=== PATIENT | male | born 1955 | race African-American/Black ===

== ENCOUNTER 2018-02-09 19:56 | Emergency (ER) | payer OTHER ==
[~2018-02-09] VITALS: Ht 182.9 cm; Wt 97.1 kg
[2018-02-09] MEDS ORDERED: METFORMIN HCL1000 M1 ORAL (20:06)
[2018-02-09] MEDS ORDERED: METOPROLOL TART50 M1 ORAL (20:09)
[2018-02-09] MEDS ORDERED: HYDROCHLOROTHIA25 MG ORAL (20:09)
[2018-02-09] MEDS ORDERED: BENAZEPRIL HCL10 MG ORAL (20:09)
[2018-02-09] MEDS ORDERED: GLIPIZIDE5 MG ORAL (20:09)
[2018-02-09] MEDS ORDERED: SIMVASTATIN40 MG ORAL (20:09)
[2018-02-09 20:35] VITALS: BP 138/79
[2018-02-09 20:57] LABS: BASOPHILS % (AUTO) 1.9 % (0.0-2.0); EOSINOPHILS % (AUTO) 2.3 % (0.0-3.0); HEMATOCRIT 38.5 % (42.0-52.0); HEMOGLOBIN 13.7 G/DL (14.2-18.0); LYMPHOCYTES % (AUTO) 26.8 % (20.0-45.0); MEAN CORPUSCULAR VOLUME 92 FL (80-99); MONOCYTES % (AUTO) 8.9 % (1.0-10.0); PLATELET COUNT 147 K/UL (150-450); RED BLOOD COUNT 4.19 M/UL (4.70-6.10); RED CELL DISTRIBUTION WIDTH 11.1 % (11.6-14.8); WHITE BLOOD COUNT 6.9 K/UL (4.8-10.8)
[2018-02-09 21:00] LABS: ANION GAP 4 mmol/L (5-15); BLOOD UREA NITROGEN 13 mg/dL (7-18); CALCIUM 9.2 MG/DL (8.5-10.1); CARBON DIOXIDE 31 MMOL/L (21-32); CHLORIDE 102 MMOL/L (98-107); CREATININE 1.2 MG/DL (0.55-1.30); POTASSIUM 4.1 MMOL/L (3.5-5.1); SODIUM 137 MMOL/L (136-145)
--- NOTE | 2018-02-09 21:03 | Emergency Room Report ---
History of Present Illness General Chief Complaint: Chest Pain Source: Patient Present Illness HPI 62-year-old male presents ED for evaluation. Complaining of chest pain. Started a few hours prior to arrival. Sudden onset. Described as pulling sensation on his left chest. Denies shortness of breath. Patient denies any chest pain at this time. Denies fevers or chills. Denies cough. Denies alcohol or drug use. Notes history of hypertension and diabetes and states he is compliant with his medications. No other aggravating relieving factors. Denies any other associated symptoms Allergies: Coded Allergies: No Known Allergies (Unverified , 02/09/18) Patient History Past Medical History: DM, HTN Past Surgical History: none Pertinent Family History: none Social History: Denies: smoking, alcohol use, drug use Immunizations: UTD Reviewed Nursing Documentation: PMH: Agreed; PSxH: Agreed Nursing Documentation-PMH Past Medical History: No History, Except For Hx Hypertension: Yes Hx Diabetes: Yes - dm2 Hx Neurological Problems: Yes - brain surgery 1994, migranes, "bad back" Review of Systems All Other Systems: negative except mentioned in HPI Physical Exam Vital Signs Date Time Temp Pulse Resp B/P (MAP) Pulse Ox O2 Delivery O2 Flow Rate FiO2 02/09/18 19:58 98.4 68 16 138/79 95 Room Air 98.4 Sp02 EP Interpretation: reviewed, normal General Appearance: no apparent distress, alert, GCS 15, non-toxic Head: normocephalic, atraumatic Eyes: bilateral eye normal inspection, bilateral eye PERRL ENT: hearing grossly normal, normal pharynx, no angioedema, normal voice Neck: full range of motion, supple/symm/no masses Respiratory: chest non-tender, lungs clear, normal breath sounds, speaking full sentences Cardiovascular #1: regular rate, rhythm, no edema Cardiovascular #2: 2+ carotid (R), 2+ carotid (L), 2+ radial (R), 2+ radial (L) , 2+ dorsalis pedis (R), 2+ dorsalis pedis (L) Gastrointestinal: normal bowel sounds, non tender, soft, non-distended, no guarding, no rebound Rectal: deferred Genitourinary: normal inspection, no CVA tenderness Musculoskeletal: back normal, gait/station normal, normal range of motion, non- tender Neurologic: alert, oriented x3, responsive, motor strength/tone normal, sensory intact, speech normal Psychiatric: judgement/insight normal, memory normal, mood/affect normal, no suicidal/homicidal ideation Reflexes: 3+ bicep (R), 3+ bicep (L), 3+ tricep (R), 3+ tricep (L), 3+ knee (R) , 3+ knee (L) Skin: normal color, no rash, warm/dry, well hydrated Lymphatic: no adenopathy Medical Decision Making Diagnostic Impression: Primary Impression: Chest pain Qualified Codes: R07.9 - Chest pain, unspecified ER Course Hospital Course 62-year-old M presents ED complaining of chest pain. no chest pain on arrival Differential diagnoses include: Rib fracture, NV/unstable angina, contusion, muscle strain Clinical course Patient placed on stretcher. After initial history and physical I ordered labs , EKG, chest x-ray. labs reviewed- all electrolytes normal, troponins negative, no leukocytosis, hemoglobin/hematocrit stable EKG - NSR, no acute ishcemic changes interpreted by me Chest x-ray-no cardiomegaly, no rib fracture, no pneumothorax, no acute process Given presentation of symptoms which started shortly after some epigastric discomfort and nausea, along with negative troponin and normal EKG with stable vitals I believe patient can be safely discharged to home. Per HEART score patient is at low risk of adverse event. I discussed findings with the patient. patient remained chest pain-free during ED course. Vital stable. Patient agrees to discharge pending close outpatient follow-up with PMD. I. I feel this is a highly complex case requiring extensive working including EKG/Rhythm strip, Xray/CT/US, Blood/urine lab work, repeat exams while in ED, and administration of strong opiates/narcotics for pain control, admission to hospital or close patient follow up. Diagnosis - chest pain Stable and discharged to home. Instructed to followup with PMD. Return to ED if symptoms recur or worsen Labs Test 02/09/18 20:25 02/09/18 21:00 White Blood Count 6.9 K/UL (4.8-10.8) Red Blood Count 4.19 M/UL (4.70-6.10) Hemoglobin 13.7 G/DL (14.2-18.0) Hematocrit 38.5 % (42.0-52.0) Mean Corpuscular Volume 92 FL (80-99) Mean Corpuscular Hemoglobin 32.7 PG (27.0-31.0) Mean Corpuscular Hemoglobin Concent 35.6 G/DL (32.0-36.0) Red Cell Distribution Width 11.1 % (11.6-14.8) Platelet Count 147 K/UL (150-450) Mean Platelet Volume 9.4 FL (6.5-10.1) Neutrophils (%) (Auto) 60.0 % (45.0-75.0) Lymphocytes (%) (Auto) 26.8 % (20.0-45.0) Monocytes (%) (Auto) 8.9 % (1.0-10.0) Eosinophils (%) (Auto) 2.3 % (0.0-3.0) Basophils (%) (Auto) 1.9 % (0.0-2.0) Sodium Level 137 MMOL/L (136-145) Potassium Level 4.1 MMOL/L (3.5-5.1) Chloride Level 102 MMOL/L (98-107) Carbon Dioxide Level 31 MMOL/L (21-32) Anion Gap 4 mmol/L (5-15) Blood Urea Nitrogen 13 mg/dL (7-18) Creatinine 1.2 MG/DL (0.55-1.30) Estimat Glomerular Filtration Rate > 60 mL/min (>60) Glucose Level 95 MG/DL (74-106) Calcium Level 9.2 MG/DL (8.5-10.1) Total Bilirubin 0.5 MG/DL (0.2-1.0) Aspartate Amino Transf (AST/SGOT) 21 U/L (15-37) Alanine Aminotransferase (ALT/SGPT) 32 U/L (12-78) Alkaline Phosphatase 84 U/L (46-116) Total Creatine Kinase 103 U/L (26-308) Creatine Kinase MB 0.5 NG/ML (0.0-3.6) Creatine Kinase MB Relative Index 0.4 Troponin I 0.000 ng/mL (0.000-0.056) Pro-B-Type Natriuretic Peptide 147 pg/mL (0-125) Total Protein 7.5 G/DL (6.4-8.2) Albumin 3.5 G/DL (3.4-5.0) Globulin 4.0 g/dL Albumin/Globulin Ratio 0.9 (1.0-2.7) Urine Opiates Screen Negative (NEGATIVE) Urine Barbiturates Screen Negative (NEGATIVE) Phencyclidine (PCP) Screen Negative (NEGATIVE) Urine Amphetamines Screen Negative (NEGATIVE) Urine Benzodiazepines Screen Negative (NEGATIVE) Urine Cocaine Screen Negative (NEGATIVE) Urine Marijuana (THC) Screen Negative (NEGATIVE) EKG Diagnostic Results Rate: normal Rhythm: NSR ST Segments: no acute changes Rhythm Strip Diag. Results EP Interpretation: yes Rhythm: NSR, no PVC's, no ectopy Chest X-Ray Diagnostic Results Chest X-Ray Diagnostic Results : Chest X-Ray Ordered: Yes # of Views/Limited/Complete: 1 View Indication: Chest Pain EP Interpretation: Yes Interpretation: no consolidation, no effusion, no pneumothorax, no acute cardiopulmonary disease Impression: No acute disease Electronically Signed by: Electronically signed by Adrián Wu MD Last Vital Signs Date Time Temp Pulse Resp B/P (MAP) Pulse Ox O2 Delivery O2 Flow Rate FiO2 02/09/18 19:58 98.4 68 16 138/79 95 Room Air 98.4 Status: improved Disposition: HOME, SELF-CARE Condition: Stable Adrián Wu MD Feb 09, 2018 21:03
[2018-02-09 21:21] LABS: ALANINE AMINOTRANSFERASE 32 U/L (12-78); ALBUMIN 3.5 G/DL (3.4-5.0); ALBUMIN/GLOBULIN RATIO 0.9 (1.0-2.7); ALKALINE PHOSPHATASE 84 U/L (46-116); ASPARTATE AMINO TRANSFERASE 21 U/L (15-37); BILIRUBIN,TOTAL 0.5 MG/DL (0.2-1.0); CKMB 0.5 NG/ML (0.0-3.6); CREATINE KINASE 103 U/L (26-308)
[2018-02-09 22:10] VITALS: BP 130/72
[2018-02-09 22:29] VITALS: BP 130/72
--- NOTE | 2018-02-10 11:00 | Diagnostic Imaging Report ---
Indication: Chest pain Technique: One view of the chest Comparison: none Findings: Lungs and pleural spaces are clear. Heart size is normal Impression: No acute process
--- NOTE | 2018-02-11 16:04 | Cardiology Report ---
APPROVED REPORT EKG Measurement Heart [id number] Poor data quality, interpretation may be adversely affected Normal sinus rhythm Normal ECG
== END 2018-02-09 22:32 | disposition home or self-care (01) ==
LOC: EMR 20:38
DX: R07.9 Chest pain, unspecified (principal); R11.0 Nausea; E11.9 Type 2 diabetes mellitus without complications; I10 Essential (primary) hypertension; Z98.890 Other specified postprocedural states
CPT/HCPCS: 36415; 71045; 80053; 80307; 82550; 82553; 83880; 84484; 85025; 93005; 99283

== ENCOUNTER 2019-05-04 01:47 | Emergency (ER) | payer OTHER ==
[~2019-05-04] VITALS: Ht 182.9 cm; Wt 95.3 kg
[~2019-05-04 01:47] MED LIST: BENAZEPRIL HCL10 MG ORAL; GLIPIZIDE5 MG ORAL; HYDROCHLOROTHIA25 MG ORAL; METFORMIN HCL1000 M1 ORAL; METOPROLOL TART50 M1 ORAL; SIMVASTATIN40 MG ORAL
--- NOTE | 2019-05-04 02:08 | Emergency Room Report ---
History of Present Illness General Chief Complaint: Laceration Source: Patient, Medical Record Present Illness HPI Disclaimer: Please note that this report is being documented using DRAGON technology. This can lead to erroneous entry secondary to incorrect interpretation by the dictating instrument. HPI: 64-year-old male presents for evaluation of a laceration to the right leg and left index finger. The patient states he was at home watching TV and playing with a large knife when it accidentally slipped and fell into his right calf. Also caught him on the dorsal aspect of the left index finger over the DIPJ. He states this was an accident and denies any intent at self-harm. Cannot recall last tetanus shot. Bleeding was stopped by applying pressure at home. No other injury sustained and he has no other complaints at this time. PMH: Diabetes PSH: Denies Allergies: Denies Social Hx: Denies drug or alcohol use Allergies: Coded Allergies: No Known Allergies (Unverified , 02/09/18) Nursing Documentation-PMH Past Medical History: No History, Except For Hx Hypertension: Yes Hx Diabetes: Yes - dm2 Hx Neurological Problems: Yes - brain surgery 1994, migranes, "bad back" Review of Systems All Other Systems: negative except mentioned in HPI Physical Exam Vital Signs Date Time Temp Pulse Resp B/P (MAP) Pulse Ox O2 Delivery O2 Flow Rate FiO2 05/04/19 01:53 99.0 88 18 100/64 (76) 94 Room Air General: Awake and alert, no acute distress HEENT: NC/AT. EOMI. Resp: Normal work of breathing Skin: 4 cm irregular and M shaped superficial laceration over the medial aspect of the right calf. Hemostatic. No obvious debris. Also a very superficial 1 semi-laceration over the dorsal DIPJ of the left index finger. Hemostatic, no edema, no debris. MSK: Normal tone and bulk. Moving all extremities. No obvious deformity. Neuro: Awake and alert. Mentating appropriately Procedures Laceration/Wound Repair Laceration/Wound Repair : Consent: Verbal Wound Location: upper extremity, lower extremity Wound's Depth, Shape: superficial, linear Wound Explored: clean Betadine Prep?: Yes Anesthesia: 1% Lidocaine Volume Anesthetic (ccs): 5 Wound Debrided: None Wound Repaired With: sutures, Dermabond Suture Size/Type: 4:0 Number of Sutures: 12 Layer Closure?: No Sterile Dressing Applied?: Yes Patient Tolerated: Well Complications: None Medical Decision Making Diagnostic Impression: Primary Impression: Laceration ER Course 64-year-old male presents for evaluation of laceration over the right lower extremity and of the left index finger. Accidental in nature and the patient denies any SI/HI simply states that he was playing with a knife and it slipped out of his grass. He cannot recall last tetanus and will update. Leg laceration was repaired with 12 simple interrupted 4-0 Prolene sutures and will need removal in the next 7 to 10 days. A finger laceration was repaired with Dermabond. Patient be discharged to follow-up with his PMD. Discussed reasons to return to the emergency department. He understands and agrees with this treatment plan. Last Vital Signs Date Time Temp Pulse Resp B/P (MAP) Pulse Ox O2 Delivery O2 Flow Rate FiO2 05/04/19 01:53 99.0 88 18 100/64 (76) 94 Room Air Disposition: HOME, SELF-CARE Condition: Improved Shorty Naylor MD May 04, 2019 02:08
[2019-05-04] MEDS ORDERED: Tetanus/Diptheria/Pertussis IM ONE (02:15)
[2019-05-04] MEDS ORDERED: Lidocaine 1% 10mg/ml/EPI 0.01mg/ml 20ml INJ ONE (02:15)
[2019-05-04 02:17] VITALS: BP 100/64
--- NOTE | 2019-05-04 02:23 | NUR ---
ED Nurse Note: Patient walked in to ER due to cuts of his righ lower leg, and right index finger. States was watching TV and playing with his knife at the same time. Therefore he droped the knife and cut him self. Patient presented calm, no active bleeding, AAO x4, VSS at this time.
--- NOTE | 2019-05-04 02:58 | NUR ---
ED Nurse Note: 12 sutures were applyed, patient toleated procedure well
[2019-05-04 03:16] VITALS: BP 100/64
--- NOTE | 2019-05-04 03:18 | NUR ---
ED Nurse Note: Pt cleared by health care Provider for discharge. DC instructions/prescription was given and explained to pt and verbalized understanding of teachings. All medical deviecs such as ID band removed. Pt is AAO x4, ambulatory and left with all personal belongings.
== END 2019-05-04 03:15 | disposition home or self-care (01) ==
LOC: EMR 02:13
DX: S81.811A Laceration without foreign body, right lower leg, initial encounter (principal); S61.211A Laceration without foreign body of left index finger without damage to nail, initial encounter; I10 Essential (primary) hypertension; E11.9 Type 2 diabetes mellitus without complications; W26.0XXA Contact with knife, initial encounter; Y93.89 Activity, other specified; Y92.019 Unspecified place in single-family (private) house as the place of occurrence of the external cause
CPT/HCPCS: 12002; 90471; 90715; Z7502; 99283

== ENCOUNTER 2019-08-13 12:58 | Emergency (ER) | payer OTHER ==
[~2019-08-13] VITALS: Ht 182.9 cm; Wt 98.0 kg
--- NOTE | 2019-08-13 13:02 | NUR ---
ED Nurse Note: PT called at waiting room but said he will use the restroom first.
--- NOTE | 2019-08-13 13:20 | NUR ---
ED Nurse Note: Patient walked into ER due to left side chest pain "pulled" x ~2hr without SOB, dyspnea or N/V or diaphoresis. Patient was sitting in the truck when he started having the pain and patient took chewable ASA. Med helped him relieve pain. Regular, unlabored breathing noted. + recent cough. Reports no fever or chills. Patient resting in bed. No facial grimacing or guarding noted.
--- NOTE | 2019-08-13 13:54 | Diagnostic Imaging Report ---
Indication: Chest pain Technique: One view of the chest Comparison: 02/09/2018 Findings: Inspiration is suboptimal. Opacity at the left lung base likely reflects some atelectasis or a prominent pericardial fat pad; patchy infiltrate also possible. The remainder the lungs and pleural spaces are clear. Impression: Possible left basilar atelectasis and/or patchy infiltrate
--- NOTE | 2019-08-13 14:22 | Emergency Room Report ---
History of Present Illness General Chief Complaint: Upper Respiratory Illness Source: Patient Present Illness HPI 64-year-old male presents to the emergency department complaining of 6 out of 10 in severity painful productive cough, headaches and body aches x2 days. Patient reports he has dark green/brown-colored sputum. He reports subjective chills but denies fevers. He reports persistent coughing and sharp pains during episodes of coughing in the left upper chest area. which he describes as a pulling sensation. He reports one transient 30 second episode of feeling dizzy. Pt. had coughing and "pulling" sensation in the left side of the chest that lasted several minutes while he was sitting in his car approximately 2 hours ELECTROPHYSIOLOGY TECH which prompted him to come to the ED. Pt. reports he had some aspirin on him so he took that which provided some relief to his CAMERON and pulling sensation. Pt. denies sensation at this time. Denies vertigo. He denies neck pain/stiffness. He denies cold sweat, palpitations or SOB. Pmhx of hyperlipidemia. Denies cardiac hx. Denies familial cardiac hx. Denies LOC, AMS, syncope or sudden onset of his CAMERON. He denies recent travel. He reports he has been visiting his friend who is in a SNF. Pt. PMHX consists of HTN, hyperlipidemia, Migraines, chronic back pain, and DM. He reports DM is well controlled with his two oral medications. He reports he sees his doctor regularly and has blood work performed every 90 days. He states he did not receive this years flu vaccination. Denies smoking hx. Denies hx of asthma or COPD. Allergies: Coded Allergies: No Known Allergies (Unverified , 02/09/18) Patient History Past Medical History: see triage record Past Surgical History: none Pertinent Family History: none Reviewed Nursing Documentation: PMH: Agreed; PSxH: Agreed Nursing Documentation-PMH Past Medical History: No History, Except For Hx Hypertension: Yes Hx Diabetes: Yes - dm2 Hx Neurological Problems: Yes - brain surgery 1994, migranes, "bad back" Review of Systems All Other Systems: negative except mentioned in HPI Physical Exam Vital Signs Date Time Temp Pulse Resp B/P (MAP) Pulse Ox O2 Delivery O2 Flow Rate FiO2 08/13/19 13:06 98.1 91 18 148/81 (103) 97 Room Air Sp02 EP Interpretation: reviewed, normal General Appearance: well appearing, no apparent distress, alert, GCS 15, non- toxic Head: normocephalic, atraumatic Eyes: bilateral eye normal inspection, bilateral eye PERRL ENT: hearing grossly normal, normal voice Neck: full range of motion Respiratory: chest non-tender, lungs clear, normal breath sounds, speaking full sentences Cardiovascular #1: regular rate, rhythm, no edema, normal capillary refill Musculoskeletal: back normal, normal range of motion, gait/station normal, non- tender Neurologic: alert, motor strength/tone normal, oriented x3, sensory intact, responsive, speech normal Psychiatric: judgement/insight normal Skin: no rash, normal color, normal inspection Lymphatic: no adenopathy Medical Decision Making PA Attestation Dr. Cuevas is my supervising Physician whom patient management has been discussed with. Diagnostic Impression: Primary Impression: Pneumonia Qualified Codes: J18.9 - Pneumonia, unspecified organism ER Course 64-year-old male presents to the emergency department complaining of 6 out of 10 in severity painful productive cough, headaches and body aches x2 days. Patient reports he has dark green/brown-colored sputum. He reports subjective chills but denies fevers. He reports persistent coughing and sharp pains during episodes of coughing in the left upper chest area. which he describes as a pulling sensation. He reports one transient 30 second episode of feeling dizzy. Pt. had coughing and "pulling" sensation in the left side of the chest that lasted several minutes while he was sitting in his car approximately 2 hours ELECTROPHYSIOLOGY TECH which prompted him to come to the ED. Pt. reports he had some aspirin on him so he took that which provided some relief to his CAMERON and pulling sensation. Pt. denies sensation at this time. Denies vertigo. He denies neck pain/stiffness. He denies cold sweat, palpitations or SOB. Pmhx of hyperlipidemia. Denies cardiac hx. Denies familial cardiac hx. Denies LOC, AMS, syncope or sudden onset of his CAMERON. He denies recent travel. He reports he has been visiting his friend who is in a SNF. Pt. PMHX consists of HTN, hyperlipidemia, Migraines, chronic back pain, and DM. He reports DM is well controlled with his two oral medications. He reports he sees his doctor regularly and has blood work performed every 90 days. He states he did not receive this years flu vaccination. Denies smoking hx. Denies hx of asthma or COPD. Ddx considered but are not limited to URI, pneumonia, PE, strep pharyngitis, meningitis, MO, angina, atelectasis/pneumothorax, costochondritis, chest wall strain just to name a few. Vital signs: Pt. is afebrile, the remaining VS are WNL H&PE are most consistent with URI-viral, no meningeal signs, oropharynx is not involved, will do cxr to assess for possible PNA. The patient does not exhibit any focal neurological deficits and there is no sudden onset of his headache. He is non-toxic in appearance and in NAD, is not exhibiting any signs of respiratory distress. Pt. has some cardiac RF's but URI is more likely at this time. ORDERS: -CXR: Left lower lobe infiltrate/ atelectasis -EKG: NSR 81 bpm ED INTERVENTIONS: None required at this time. D/w pt. results of imaging. --PT. EDUCATION: Discussed strict ED return precautions for recurrent episode of CP and or dizziness/lightheadedness, or in association with any other new symptom. D/w pt. although alternative dx of PNA is visible on x-ray, cardiac possibility still exists. DISCHARGE: At this time pt. is stable for d/c to home. Will provide printed patient care instructions, and any necessary prescriptions. Care plan and follow up instructions have been discussed with the patient prior to discharge. EKG Diagnostic Results EP Interpretation: Dr. Cuevas Rate: normal - 81 Rhythm: NSR ST Segments: no acute changes ASA given to the pt in ED: No PA Scribe Text This Interpretation was scribed by JATIN Paris. Chest X-Ray Diagnostic Results Chest X-Ray Diagnostic Results : Chest X-Ray Ordered: Yes # of Views/Limited/Complete: 1 View Indication: Chest Pain EP Interpretation: Yes JATIN Xray: Interpretation reviewed, by supervising MD Interpretation: no pneumothorax, other - left lower lobe infiltrate/effusion Impression: Other Electronically Signed by: Lea STEINER Scribe Text Radiologist read was left lower lobe infiltrate/atelectasis. - Please see official radiological report for specific details. Last Vital Signs Date Time Temp Pulse Resp B/P (MAP) Pulse Ox O2 Delivery O2 Flow Rate FiO2 08/13/19 13:29 16 Room Air 08/13/19 13:06 98.1 91 148/81 (103) 97 Status: improved Disposition: HOME, SELF-CARE Condition: Stable Scripts D-Methorphan Hb/Prometh Hcl* (PROMETHAZINE-DM SYRUP*) 118 Ml Syrup 5 ML ORAL Q6H PRN for For Cough, #120 ML 0 Refills Prov: Lea Paris 08/13/19 Guaifenesin (Mucinex) 1,200 Mg Tab.er.12h 1200 MG PO Q12HR, #20 TAB Prov: Lea Paris 08/13/19 Azithromycin* (ZITHROMAX*) 250 Mg Tablet 250 MG ORAL DAILY, #6 TAB 0 Refills Take two tables once daily for 1 day, then one tablet once daily for 4 days. Prov: Lea Paris 08/13/19 Patient Instructions: Community-Acquired Pneumonia, Adult Additional Instructions: Take medications as directed. Follow up with a Primary Care Provider in 3-5 days, even if your symptoms have resolved. Return sooner to ED if new symptoms occur, or current symptoms become worse. - Please note that this Emergency Department Report was dictated using Digital Air Strikeelectrical assistant technology software, occasionally this can lead to erroneous entry secondary to interpretation by the dictation equipment. Lea Paris Aug 13, 2019 14:22
[2019-08-13] MEDS ORDERED: PROMETHAZINE-D118 ML ORAL (14:24)
[2019-08-13] MEDS ORDERED: MUCINEX1200 MG PO (14:24)
[2019-08-13] MEDS ORDERED: ZITHROMAX250 MG ORAL (14:24)
[2019-08-13 14:36] VITALS: BP 148/88
== END 2019-08-13 14:37 | disposition home or self-care (01) ==
LOC: EMR 14:00
DX: J18.9 Pneumonia, unspecified organism (principal); I10 Essential (primary) hypertension; E11.9 Type 2 diabetes mellitus without complications
CPT/HCPCS: 71045; 93005; Z7502; 99283